=== PATIENT | male | born 1945 | race Caucasian/White ===

== ENCOUNTER → 2019-01-12 | Outpatient (CLI) | payer MEDICARE, BC, SELFPAY | PROVIDERS: PCP Family Medicine; Visit Provider Family Medicine | DX: E78.2 Mixed hyperlipidemia (principal); I10 Essential (primary) hypertension; Z12.5 Encounter for screening for malignant neoplasm of prostate; R79.89 Other specified abnormal findings of blood chemistry | CPT/HCPCS: 85025; 84443; 84153; 36415; 84439; 80061; 80048; 80076; G0103 ==

== ENCOUNTER 2019-12-28 07:57 | Outpatient (CLI) | payer MEDICARE, BC, SELFPAY ==
[2019-12-28 08:25] LABS: Hematocrit 36.7 % (42.0-52.0); Hemoglobin 12.1 g/dL (14.0-18.0); Mean Corpuscular Hemoglobin 30.1 pg (26-34); Mean Corpuscular Volume 91.3 fl (80-100); Mean Platelet Volume 9.8 fl (7.4-10.4); Platelet Count Result 181 k/mm3 (150-375); Red Blood Count 4.02 M/mm3 (4.6-6.20); Red Cell Distribution Width 13.7 % (11.5-14.5); White Blood Count 7.1 K/mm3 (4.5-10.0)
[2019-12-28 08:39] LABS: Alanine Aminotransferase 9 U/L (4-50); Alkaline Phosphatase 57 U/L (38-126); Anion Gap 3 mmol/L (8-16); Aspartate Amino Transferase 26 U/L (17-59); Bilirubin,Total 0.6 mg/dL (0.2-1.3); Blood Urea Nitrogen 26 mg/dL (9-20); Calcium 9.2 mg/dL (8.4-10.2); Carbon Dioxide 30 mmol/L (22-30); Chloride 104 mmol/L (98-107); Cholesterol 116 mg/dL (0-200); Estimated Glomerular Filt Rate > 60; Glucose 118 mg/dL (75-110); HDL Direct 28 mg/dL; Potassium 4.8 mmol/L (3.4-5.0); Sodium 137 mmol/L (137-145); Triglycerides 77 mg/dL (<150)
[2019-12-28 08:49] LABS: LDL Cholesterol Direct 67 mg/dL
== END 2019-12-28 07:58 | disposition home or self-care (01) ==
PROVIDERS: PCP Family Medicine
DX: I25.10 Atherosclerotic heart disease of native coronary artery without angina pectoris (principal); I10 Essential (primary) hypertension; E78.2 Mixed hyperlipidemia
CPT/HCPCS: 36415; 80053; 80061; 85027

== ENCOUNTER 2020-02-06 06:45 | Outpatient (CLI) | payer MEDICARE, BC, SELFPAY ==
[2020-02-06 07:55] LABS: Hemoglobin A1C 6.2 % (<5.7)
[2020-02-06 08:11] LABS: Creatinine Urine 81.1 mg/dL
[2020-02-06 08:16] LABS: Microalbumin Urine Random 16.2 mg/L (0-16.7)
[2020-02-06 08:29] LABS: Prostate Specific Antigen 0.2 ng/mL (< OR = 4.0)
== END 2020-02-06 06:46 | disposition home or self-care (01) ==
PROVIDERS: PCP Family Medicine; Visit Provider Family Medicine
DX: E11.9 Type 2 diabetes mellitus without complications (principal); Z12.5 Encounter for screening for malignant neoplasm of prostate
CPT/HCPCS: 36415; 82043; 83036; 84153; G0103

== ENCOUNTER → 2020-02-25 18:20 | Outpatient (CLI) | payer MEDICARE, BC, SELFPAY ==
--- NOTE | ~2020-02-25 | XR_ITS ---
EXAMINATION: XR chest 2V DATE: 02/25/2020 18:55 INDICATION: Cough TECHNIQUE: frontal and lateral views of the chest were obtained. COMPARISON: None FINDINGS: Mild scattered linear opacities in the left mid and lower and right lower lung zones consistent with discoid atelectasis. No other airspace opacities, pulmonary edema, pleural effusion or pneumothorax. The cardiomediastinal silhouette is normal. Median sternotomy wires and mediastinal surgical clips ar e seen, likely from prior coronary artery bypass grafting. Moderate thoracolumbar spondylosis. There are bridging osteophytes at multiple levels in the spine, consistent with diffuse idiopathic skeletal hyperostosis (DISH). IMPRESSION: 1. Mild scattered linear opacities, most likely atelectasis/scarring in the left mid to lower and rig ht lower lung zones. Reviewed, dictated and finalized at [facility]. STAINER IMPRESSION: 1. Mild scattered linear opacities, most likely atelectasis/scarring in the lef t mid to lower and right lower lung zones.
== END ==
PROVIDERS: PCP Family Medicine; Visit Provider Family Medicine
DX: R05 Cough (principal); R92.8 Other abnormal and inconclusive findings on diagnostic imaging of breast; M47.815 Spondylosis without myelopathy or radiculopathy, thoracolumbar region; M48.10 Ankylosing hyperostosis [Forestier], site unspecified
CPT/HCPCS: 71046

== ENCOUNTER 2020-10-27 13:35 | Outpatient (CLI) | payer MEDICARE, BC, SELFPAY ==
[2020-10-27 17:13] LABS: Vitamin D 25 Hydroxy 27.8 ng/mL
== END 2020-10-27 13:36 | disposition home or self-care (01) ==
PROVIDERS: PCP Family Medicine
DX: E55.9 Vitamin D deficiency, unspecified (principal)
CPT/HCPCS: 36415; 82306

== ENCOUNTER 2021-02-25 08:03 | Outpatient (CLI) | payer MEDICARE, BC, SELFPAY ==
[2021-02-25 08:29] LABS: Hematocrit 38.5 % (42.0-52.0); Mean Corpuscular HGB Conc 33.8 g/dl (32-36); Mean Corpuscular Volume 91.9 fl (80-100); Mean Platelet Volume 9.9 fl (7.4-10.4); Platelet Count Result 205 k/mm3 (150-375); Red Blood Count 4.19 M/mm3 (4.6-6.20); Red Cell Distribution Width 13.5 % (11.5-14.5); White Blood Count 7.3 K/mm3 (4.5-10.0)
[2021-02-25 08:45] LABS: Alanine Aminotransferase 13 U/L (4-50); Albumin Level 4.3 g/dL (3.5-5.1); Alkaline Phosphatase 63 U/L (38-126); Anion Gap 7 mmol/L (8-16); Aspartate Amino Transferase 30 U/L (17-59); Bilirubin,Total 0.6 mg/dL (0.2-1.3); Blood Urea Nitrogen 27 mg/dL (9-20); Calcium 9.4 mg/dL (8.4-10.2); Carbon Dioxide 31 mmol/L (22-30); Chloride 99 mmol/L (98-107); Cholesterol 121 mg/dL (0-200); Estimated Glomerular Filt Rate > 60; Glucose 123 mg/dL (65-110); HDL Direct 31 mg/dL; Potassium 4.6 mmol/L (3.4-5.0); Sodium 137 mmol/L (137-145); Triglycerides 78 mg/dL (<150)
[2021-02-25 08:58] LABS: LDL Cholesterol Direct 68 mg/dL
[2021-02-25 09:17] LABS: Creatinine Urine 77.7 mg/dL
[2021-02-25 09:18] LABS: Prostate Specific Antigen 0.3 ng/mL (< OR = 4.0)
[2021-02-25 09:19] LABS: MALB Creatinine Ratio 15.4 mg/g (0-30)
[2021-02-25 09:23] LABS: Hemoglobin A1C 6.5 % (<5.7)
[2021-02-25 09:31] LABS: Vitamin D 25 Hydroxy 54.7 ng/mL
== END 2021-02-25 08:04 | disposition home or self-care (01) ==
PROVIDERS: PCP Family Medicine; Visit Provider Family Medicine
DX: N28.9 Disorder of kidney and ureter, unspecified (principal); I10 Essential (primary) hypertension; E11.9 Type 2 diabetes mellitus without complications; E78.2 Mixed hyperlipidemia; Z13.220 Encounter for screening for lipoid disorders; Z12.5 Encounter for screening for malignant neoplasm of prostate; E55.9 Vitamin D deficiency, unspecified
CPT/HCPCS: 36415; 80048; 80061; 80076; 82043; 82306; 83036; 84153; 84443; 85027; G0103

== ENCOUNTER 2021-07-15 14:40 | Outpatient (CLI) | payer MEDICARE, BC, SELFPAY ==
[2021-07-15 15:36] LABS: Basophils Absolute Auto 0.1 K/mm3 (0.0-0.1); Basophils Percent Auto 1.5 % (0.2-1.2); Eosinophils Absolute Auto 0.4 K/mm3 (0-0.3); Eosinophils Percent Auto 4.9 % (0-4.4); Hematocrit 38.1 % (42.0-52.0); Hemoglobin 12.5 g/dL (14.0-18.0); Immature Granulocyte Absolute 0.02 K/mm3 (0.00-0.031); Immature Granulocyte Percent A 0.2 % (0-0.5); Lymphocytes Absolute Auto 1.78 K/mm3 (0.9-3.2); Lymphocytes Percent Auto 20.7 % (18.3-44.2); Mean Corpuscular HGB Conc 32.8 g/dl (32-36); Mean Corpuscular Hemoglobin 30.6 pg (26-34); Mean Corpuscular Volume 93.2 fl (80-100); Mean Platelet Volume 10.4 fl (7.4-10.4); Monocytes Percent Auto 11.8 % (2.6-8.5); Neutrophils Absolute Auto 5.2 K/mm3 (1.3-6.7); Neutrophils Percent Auto 60.9 % (45.5-73.1); Platelet Count Result 232 k/mm3 (150-375); Red Blood Count 4.09 M/mm3 (4.6-6.20); White Blood Count 8.6 K/mm3 (4.5-10.0)
== END 2021-07-15 14:41 | disposition home or self-care (01) ==
LOC: ANHLAB 14:42
PROVIDERS: PCP Family Medicine; Visit Provider Podiatrist Foot & Ankle Surgery
DX: M10.072 Idiopathic gout, left ankle and foot (principal)
CPT/HCPCS: 36415; 84550; 85025

== ENCOUNTER 2021-10-07 12:51 | Outpatient (CLI) | payer MEDICARE, BC, SELFPAY ==
[2021-10-07 15:33] LABS: Vitamin D 25 Hydroxy 66.9 ng/mL
== END 2021-10-07 12:52 | disposition home or self-care (01) ==
PROVIDERS: PCP Family Medicine
DX: E55.9 Vitamin D deficiency, unspecified (principal)
CPT/HCPCS: 36415; 82306

== ENCOUNTER 2022-06-29 07:56 | Outpatient (CLI) | payer MEDICARE, BC, SELFPAY ==
[2022-06-29 08:56] LABS: Alanine Aminotransferase 17 U/L (6-50); Albumin Level 4.4 g/dL (3.5-5.1); Alkaline Phosphatase 56 U/L (38-126); Aspartate Amino Transferase 29 U/L (17-59); Bilirubin,Total 0.7 mg/dL (0.2-1.3); Cholesterol 126 mg/dL (0-200); HDL Direct 30 mg/dL; Triglycerides 105 mg/dL (<150)
[2022-06-29 09:07] LABS: LDL Cholesterol Direct 70 mg/dL
[2022-06-29 09:20] LABS: Creatinine Urine 83.9 mg/dL
[2022-06-29 09:23] LABS: MALB Creatinine Ratio 52.7 mg/g (0-30); Microalbumin Urine Random 44.2 mg/L (0-16.7)
[2022-06-29 09:25] LABS: Prostate Specific Antigen 0.3 ng/mL (< OR = 4.0)
== END 2022-06-29 07:57 | disposition home or self-care (01) ==
PROVIDERS: PCP Family Medicine; Visit Provider Family Medicine
DX: E78.2 Mixed hyperlipidemia (principal); E11.9 Type 2 diabetes mellitus without complications; Z12.5 Encounter for screening for malignant neoplasm of prostate; Z13.220 Encounter for screening for lipoid disorders; I25.10 Atherosclerotic heart disease of native coronary artery without angina pectoris
CPT/HCPCS: 36415; 80061; 80076; 82043; 84153; G0103

== ENCOUNTER 2022-08-10 12:08 | Outpatient (CLI) | payer MEDICARE, BC, SELFPAY ==
--- NOTE | ~2022-08-10 | XR_ITS ---
EXAM: XR lumbar spine 6V w bending DATE: 08/10/2022 12:36 HISTORY: S39.92XA - Unspecified injury of lower back, initial enco... . COMPARISON: X-ray chest 02/25/2020. FINDINGS: 5 nonrib-bearing lumbar-type vertebral bodies. Pedicles intact. Stable mild anterior wedge deformity at T12-L1. Multilevel disc space narrowing and marginal osteophytosis including large brid ging osteophytes at multiple levels. Severe disc space narrowing with vacuum phenomenon at L5-S1. 4 m m retrolistheses at L1-2 and L2-3 that are stable in extension and reduce in flexion. Stable 3 mm ret rolisthesis at L3-4. Stable 2 mm anterolisthesis at L5-S1. No pars defect. Multilevel moderate facet sclerosis and hypertrophy, most progressive at L5-S1. Aortic calcification without evident aneurysm. IMPRESSION: No acute fracture detected in the lumbar spine. Dynamic grade 1 retrolistheses at L1-2 an d L2-3. Stable grade 1 retrolisthesis at L3-4. Stable grade 1 anterolisthesis at L5-S1. Multilevel de generative disc disease and facet arthropathy, most pronounced at L5-S1. Reviewed, dictated and finalized at location [facility]. IMPRESSION: No acute fracture detected in the lumbar spine. Dynamic grade 1 ret rolistheses at L1-2 and L2-3. Stable grade 1 retrolisthesis at L3-4. Stable gra de 1 anterolisthesis at L5-S1. Multilevel degenerative disc disease and facet a rthropathy, most pronounced at L5-S1.
== END 2022-08-10 12:09 | disposition home or self-care (01) ==
PROVIDERS: PCP Family Medicine; Visit Provider Nurse Practitioner Family
DX: S39.92XA Unspecified injury of lower back, initial encounter (principal); X58.XXXA Exposure to other specified factors, initial encounter; M51.37 Other intervertebral disc degeneration, lumbosacral region
CPT/HCPCS: 72114

== ENCOUNTER 2023-08-24 07:39 | Outpatient (CLI) | payer MEDICARE, BC, SELFPAY ==
[2023-08-24 08:22] LABS: Hematocrit 41.9 % (42.0-52.0); Hemoglobin 13.5 g/dL (14.0-18.0); Mean Corpuscular HGB Conc 32.2 g/dl (32-36); Mean Corpuscular Hemoglobin 29.5 pg (26-34); Mean Corpuscular Volume 91.5 fl (80-100); Mean Platelet Volume 10.5 fl (7.4-10.4); Platelet Count Result 206 k/mm3 (150-375); Red Blood Count 4.58 M/mm3 (4.6-6.20); Red Cell Distribution Width 14.8 % (11.5-14.5)
[2023-08-24 08:35] LABS: Alanine Aminotransferase 12 U/L (6-50); Albumin Level 4.7 g/dL (3.5-5.1); Alkaline Phosphatase 57 U/L (38-126); Anion Gap 8 mmol/L (4-12); Aspartate Amino Transferase 28 U/L (17-59); Bilirubin,Total 0.9 mg/dL (0.2-1.3); Blood Urea Nitrogen 37 mg/dL (9-20); Calcium 9.4 mg/dL (8.4-10.2); Carbon Dioxide 27 mmol/L (22-30); Chloride 104 mmol/L (98-107); Cholesterol 126 mg/dL (0-200); Estimated Glomerular Filt Rate > 60; Glucose 125 mg/dL (65-110); HDL Direct 33 mg/dL; Potassium 4.9 mmol/L (3.4-5.0); Sodium 139 mmol/L (137-145); Triglycerides 130 mg/dL (<150)
[2023-08-24 08:44] LABS: LDL Cholesterol Direct 72 mg/dL
[2023-08-24 08:48] LABS: Creatinine Urine 99.4 mg/dL
[2023-08-24 08:52] LABS: MALB Creatinine Ratio 34.8 mg/g (0-30); Microalbumin Urine Random 34.6 mg/L (0-16.7)
[2023-08-24 09:04] LABS: Prostate Specific Antigen 0.6 ng/mL (< OR = 4.0)
== END 2023-08-24 07:40 | disposition home or self-care (01) ==
PROVIDERS: PCP Family Medicine; Visit Provider Family Medicine
DX: N28.9 Disorder of kidney and ureter, unspecified (principal); Z12.5 Encounter for screening for malignant neoplasm of prostate; E78.2 Mixed hyperlipidemia; Z13.220 Encounter for screening for lipoid disorders; E11.9 Type 2 diabetes mellitus without complications; I10 Essential (primary) hypertension
CPT/HCPCS: 36415; 80048; 80061; 80076; 82043; 84153; 84443; 85027; G0103

== ENCOUNTER 2024-09-05 08:27 | Outpatient (CLI) | payer MEDICARE, BC, SELFPAY ==
--- OUTSIDE RECORDS SUMMARY | 2024-09-05 08:31 | XMS_ITS | Continuity of Care Document ---
Author Name [facility] Organization [facility] Care Team Providers Care Assignment Manager Name Role Phone [facility] Unavailable Unavailable Encounters Combined list of: 1) Encounters from [facility] of Veterans Affairs facilities going backup to the last 18 months, not all VA inpatient encounters are included; 2) Encounters from the Department of Defense facilities going backup to 280 months. Location Location Details Encounter Type Encounter Number Reason For Visit Attending Provider ADM Date DC Date Status Disposition Source [facility] Outpatient Encounter [id number] 04/21 [facility]
--- OUTSIDE RECORDS SUMMARY | 2024-09-05 08:31 | XMS_ITS | Clinical Summary ---
Author Organization [facility] Address [address] [place] [address] Care Team Providers Care Sales Enablement Manager Name Role Phone Andres Thompson MD Primary Care Provider [phone] Allergies Active Allergy Reactions Criticality Noted Date Comments Hydrocodone-Acetaminophen Nausea and Vomiting Medium 0 12/12/2013 Severe nausea Medications metFORMIN (GLUCOPHAGE) 500 mg tablet Take 500 mg by mouth late in the day . Active Accu-Chek Fastclix Lancet Drum U QID 0 Active Accu-Chek Guide Glucose Meter U UTD FOR DIABETES 0 Active Accu-Chek Guide test strips Strip TEST BLOOD SUGAR QID 0 Active cholecalciferol, vitamin D3, 5,000 unit Take 400 Units by mouth daily. Active OTC INGREDIENT Eye promise, take 1 gel bid Active aspirin (ECOTRIN EC) 81 mg Tablet, Delayed Release (E.C.) Take 1 Tablet (81 mg) by mouth daily. 90 Tablet 4 4 Active atorvastatin (LIPITOR) 80 mg tabletIndications:M ixed hyperlipidemia TAKE 1 TABLET BY MOUTH DAILY 90 Tablet 3 5 Active sacubitriL-valsarta n (ENTRESTO) 49-51 mg Tablet Take 1 Tablet by mouth 2 times daily. 200 Tablet 3 5 Active Active Problems Patient Care Coordination No te Formatting of this note migh t be different from the original. Loom Repairer- Dr. Annmarie Meyer ROLL INSPECTOR KAR BLACK MD. ([place]) Problem Noted Date Diagnosed Date Aortic stenosis 06/20/2024 Overview (06/20/2024): Mild-mod echo 02/25 Post-op pain 02/14/2024 Bilateral carotid artery stenosis 02/13/2024 Overview (06/20/2024): S/P R CEA 02/25 Sinus node dysfunction 08/12/2017 Overview (06/20/2024): Carvedilol reduced bc bradycardia holter 04/24 Carvedilol stopped bc bradycardia 10/24 Had marked bradycardia following CEA, seen by EP, PM felt not warranted 02/25 Ventricular ectopy 01/12/2017 Overview (10/05/2022): Approx 5% of all HBs holter 04/21 <<< 1% of all HBs holters 04/24, 09/24 CAD 12/01/2016 Overview (06/20/2024): Asymptomatic, detected bc irregular pulse, led to ECG which was abnormal, warrants surveillance stress testing S/P CABG 12/19 Inferolat, apical infarct, no ischemia, LVEF 52% stress 05/28 LVEF 40% echo 02/25 Carvedilol stopped bc bradycardia Has never had CHF Hyperlipidemia 12/01/2016 Type 2 diabetes mellitus 12/01/2016 HTN (hypertension) 12/01/2016 Type 2 diabetes mellitus 12/01/2016 Resolved Problems Problem Noted Date Diagnosed Date Resolved Date Chronic systolic congestive heart failure 02/14/2024 06/20/2024 First degree AV block 02/13/20242024 Sinus bradycardia 02/13/2024 06/20/2024 Cardiomyopathy 04/18/2017 03/21/2019 LBBB (left bundle branch block) 02/28/2017 02/28/2017 HTN (hypertension) 12/01/2016 5 Encounters Date Type Department Care Team Description 08/16/2024 2:15 PM CDT Office Visit [facility] Mechanical Meter Tester [address] [place] [address] Tye Singh MD Bilateral carotid artery stenosis (Primary Dx) 08/16/2024 12:55 PM CDT - 08/16/2024 11:59 PM CDT Hospital Encounter [facility] Supp Svcs Blood Flow [address] [place] [address] Tye Singh MD Discharge Disposition: Home or Self Care 08/14/2024 External Device Data STL ABSTRACTION Provider, Abstract 07/03/2024 External Device Data STL ABSTRACTION Provider, Abstract 06/26/2024 External Device Data STL ABSTRACTION Provider, Abstract 06/20/2024 8:45 AM CDT Office Visit [facility] [address] [place] [address] Kar Black MD CAD s/p CABG (Primary Dx); Aortic stenosis; Sinus node dysfunction; Hypertension; Hyperlipidemia 06/09/2024 External Device Data STL ABSTRACTION Provider, Abstract 06/08/2024 External Device Data STL ABSTRACTION Provider, Abstract from Last 3 Months Immunizations Immunization Administration Dates Next Due Influenza Seasonal Unspecified Formulation IM Family History Medical History Relation Name Comments Heart Attack Brother No Known Problems Sister Relation Name Status Comments Brother (Age 63) Heart Niko ck Father (Age 63) Lung Cance r Maternal Grandfather (Age 49) Co nsumption Maternal Grandmother (Age 86) DM /Stroke Mother (Age 86) Dementia Paternal Grandfather (Age 66) Gutierrez rdening of the Arteries Sister Alive Social History Tobacco Use Types Packs/Day Years Used Date Smoking Tobacco: Former Cigarettes Q uit: 1977 Smokeless Tobacco: Never Tobacco Cessation:Counseling Given: Not Answered Alcohol Use Standard Drinks/Week Comments Not Currently 0 (1 standard drink = 0.6 oz pur e alcohol) rarely Food Insecurity Answer Date Recorded Patient needs follow up regardin 07/26/2024 Transportation Needs Answer Date Record ed Patient needs follow up regardin 07/26/2024 Housing Stability Answer Date Recorded Social/Environmental Concerns No concerns Utility Needs Answer Date Recorded Patient needs follow up regardin 07/26/2024 Sex and Gender Information Value Date Recorded Sex Assigned at Not on file Legal Sex Male 2:46 PM CDT Gender Identity Not on file Sexual Orientation Not on file Last Filed Vital Signs Vital Sign Reading Time Taken Comments Blood Pressure 132/74 08/16/2024 1:51 PM CDT Pulse 53 06/20/2024 8:12 AM CDT Temperature 36.9 C (98.5 F) 02/14/2024 1:00 PM CHEESE PACKER Respiratory Rate 19 02/14/2024 3:00 PM CHEESE PACKER Oxygen Saturation 98% 06/20/2024 8:12 AM CDT Inhaled Oxygen Concentration - - Weight 84.8 kg (187 lb) 06/20/2024 8:12 AM CDT Height 175.3 cm (5' 9) 06/20/2024 8:12 AM CDT Body Mass Index 27.62 06/20/2024 8:12 AM CDT Plan of Treatment Upcoming Encounters Date Type Department Care Team (Late st Contact Info) Description 12/26/2024 10:45 AM CDT Office Visit [facility] [address] [address] [place] [address] Kar Black MD [address] [facility] [address] [place], [place] [id number] 02/14/2025 11:00 AM CHEESE PACKER Appointment [facility] Supp Svcs Blood Flow [address] [place] [address] Tye Singh MD NO ADDRESS ON FILE 02/14/2025 11:45 AM CHEESE PACKER Office Visit [facility] [place] [address] [address] Candido Momin MD [facility] [address] [address] Health Maintenance Due Date Last Done Comments DIABETES ANNUAL FOOT EXAM 12/14/1963 DIABETES MICROALBUMIN ANNUAL SCREEN 12/14/1963 DTAP/TDAP/TD VACCINES (1 - Tdap) 1964 PNEUMOCOCCAL VACCINE 50+ YEA RS (1 of 2 - PCV) 1964 ZOSTER VACCINE (1 of 2) 12/14/1995 LDL CHOLESTEROL ANNUAL 11/26/2017 11/26/2016 RSV VACCINE (60+ or ) (1 - 1-dose 75+ series) 2020 DIABETES ANNUAL RETINAL EXAM 08/24/2023, 07/30/2021, 07/01/2020, Additional history exists INFLUENZA VACCINE (#1) 2023 12/28/2017 DIABETES HBA1C Q 6 MONTHS 08/06/20242023, 07/26/2023, 09/28/2022, Additional history exists COLORECTAL SCREENING Discontinued 11/11/2017 Colorectal Cancer Screening Discontinued FIT-DNA Q 3 years Discontinued FIT/FOBT Q 1 year Discontinued Flex Sig/CT Colonography Q 5 years Discontinued Medical Devices Implanted Type Area Hostess Party Sales Representative Device Identifier Shelf Expiration Date Model / Serial / Lot Clip Ligating Horizon Med Ti [id number] - Csc - [id number] Implanted:Qty : 2 on 02/13/2024 by Tye Singh MD at [facility] Clip Right: Neck TELEFLEX- WECK CLOSURE SYS 11/06/2028 [id number] / / [id number] Clip Ligating Horizon Sm Ti [id number] - Csc - [id number] Implanted:Qty : 2 on 02/13/2024 by Tye Singh MD at [facility] Clip Right: Neck [employer]LE[employer] INC 10/02/2028 [id number] / / [id number] Patch Vascu-Guard 0.8x8cm Cardio Vg-0108 - [id number] Implanted:Qty : 1 on 02/13/2024 by Tye Singh MD at [facility] Collagen Right: Carotid [employer] [id number] 07/11/2025 [id number] / / [id number] Hemostatic Surgicel 4x8in 1951 - [id number] Implanted:Qty : 1 on 12/08/2016 by Clay Pabon MD at [facility] Hemostatic N/A: Chest [employer] 01/01/20211951 / / [id number] Hemostatic Surgiflo 8ml W/ Thrombin 2994 - [id number] Implanted:Qty : 1 on 02/13/2024 by Tye Singh MD at [facility] Hemostatic Right: Neck [employer] [id number] 10/01/2024 2994 / / [id number] Dental Implants Procedures Procedure Name Priority Date/Time Associated Diagnosis Comments US CAROTID DOPPLER Routine 08/16/2024 2: 24 PM CDT Bilateral carotid artery stenosis HEMOGLOBIN A1C Routine 02/07/2024 2:15 PM CHEESE PACKER LIPID PANEL Routine 11/26/2016 from Last 3 Months or Most Recently Relevant to Health Maintenance Results * US CAROTID DOPPLER (08/16/2024 2:24 PM CDT) Anatomical Region Laterality Modality Neck Ultrasound 08/16/2024 1:11 PM CDT Narrative 08/17/2024 7:02 AM CDT [address] [address] [email or web address] [email or web address] Exam Carotid Duplex Patient: Gio Grnat Study ID: [id number] Gender: M : 1945 Age: 78 Race: CAU Height 175.3cm Study Date: 08/16/2024 Weight: 84.8kg Access. #: [id number] *Referring Physician:* Tye Singh Gregory *Ordering Physician:* Tye Singh *Casing Runner:* Elizabeth Oropeza History: Known carotid disease. PMH: Prior study from 05/16/24 is available for comparison. Risk factors: Former tobacco use; date of cessation unknown. Hypertension. Diabetes mellitus. Hyperlipidemia. Coronary artery disease. Study data: New node Study status: Routine. Procedure: A vascular evaluation was performed. Image quality was good. Carotid duplex study was performed using real-time imaging coupled with Doppler flow analysis. Carotid duplex study. Complete study and Doppler flow study including spectral analysis, color and roth scale imaging. Birthdate: Patient birthdate: 1945. Age: Patient is 78year(s) old. Sex: gender: male. Height: 175.3cm. 69in. Weight: 84.8kg. : 187lb. Body mass index: BMI: 27.6kg/m^2. Body surface area: BSA: 2.05m^2. Study date: Study date: 08/16/2024. Study time: 01:11 PM. Location: Vascular laboratory. Patient status: Outpatient. Impressions - Study data: Prior study from 05/16/24 is available for comparison. - Right internal carotid: There is heterogeneous plaque. Stenosis: There is a 0-49% stenosis. - Left internal carotid: There is irregular calcific plaque. Stenosis: There is a 50-69% stenosis. The bilateral vertebral arteries are patent with normal antegrade flow. Aorta and systemic arteries: Right internal carotid: There is heterogeneous plaque. Stenosis: There is a 0-49% stenosis. Left internal carotid: There is irregular calcific plaque. Stenosis: There is a 50-69% stenosis. Tables: Arterial flow: + +-----+----+ !Location !V sys!V ed! + +-----+----+ !Right CCA - proximal!185 !20.3! + +-----+----+ !Right CCA - distal !93 !25.2! + +-----+----+ !Right ICA - proximal!110 !24.1! + +-----+----+ !Right ICA - mid !95.9 !28.1! + +-----+----+ !Right ICA - distal !110 !45.5! + +-----+----+ !Right ECA !-184 !26.3! + +-----+----+ !Right vertebral !49.7 !18 ! + +-----+----+ !Left CCA - proximal !101 !24.2! + +-----+----+ !Left CCA - distal !84.5 !26.1! + +-----+----+ !Left ICA - proximal !338 !79 ! + +-----+----+ !Left ICA - distal !180 !47.3! + +-----+----+ !Left ECA !147 !16.5! + +-----+----+ !Left vertebral !66.3 !24.3! + +-----+----+ *Velocities are expressed in cm/s, Diameters are expressed in cm Prepared and Electronically Authenticated Enoc Padilla [id number]:01:57 Procedure Note Enoc Padilla MD - 08/17/[address] [place] [address] [email or web address] [email or web address] Exam Carotid Duplex Patient: Gio Grant Study ID: [id number] Gender: M : 1945 Age: 78 Race: MARY JO Height 175.3cm Study Date: 08/16/2024 Weight: 84.8kg Access. #: [id number] *Referring Physician:Tye Rae Gregory *Ordering Physician:* Tye Singh *Casing Runner:Elizabeth Aggarwal History: Known carotid disease. PMH: Prior study from 05/16/24 isavailable for comparison. Risk factors: Former tobacco use; date of cessationunknown. Hypertension. Diabetes mellitus. Hyperlipidemia. Coronary arterydisease. Study data: [facility] Study status: Routine. Procedure: A vascular evaluation was performed. Image quality was good. Carotid duplex studywas performed using real-time imaging coupled with Doppler flow analysis. Carotid duplex study. Complete study and Doppler flow studyincluding spectral analysis, color and roth scale imaging. Birthdate: Patient birthdate: 1945. Age: Patient is 78year(s) old. Sex: Birthgender: male. Height: 175.3cm. 69in. Weight: 84.8kg. : 187lb. Body massindex: BMI: 27.6kg/m^2. Body surface area: BSA: 2.05m^2. Study date:Study date: 08/16/2024. Study time: 01:11 PM. Location: Vascular laboratory. Patient status: Outpatient. Impressions - Study data: Prior study from 05/16/24 is available for comparison. - Right internal carotid: There is heterogeneous plaque. Stenosis: Thereis a 0-49% stenosis. - Left internal carotid: There is irregular calcific plaque. Stenosis:There is a 50-69% stenosis. The bilateral vertebral arteries are patent with normal antegrade flow. Aorta and systemic arteries: Right internal carotid: There is heterogeneous plaque. Stenosis: There wilfredo 0-49% stenosis. Left internal carotid: There is irregular calcific plaque. Stenosis: Thereis a 50-69% stenosis. Tables: Arterial flow: + +-----+----+ !Location !V sys!V ed! + +-----+----+ !Right CCA - proximal!185 !20.3! + +-----+----+ !Right CCA - distal !93 !25.2! + +-----+----+ !Right ICA - proximal!110 !24.1! + +-----+----+ !Right ICA - mid !95.9 !28.1! + +-----+----+ !Right ICA - distal !110 !45.5! + +-----+----+ !Right ECA !-184 !26.3! + +-----+----+ !Right vertebral !49.7 !18 ! + +-----+----+ !Left CCA - proximal !101 !24.2! + +-----+----+ !Left CCA - distal !84.5 !26.1! + +-----+----+ !Left ICA - proximal !338 !79 ! + +-----+----+ !Left ICA - distal !180 !47.3! + +-----+----+ !Left ECA !147 !16.5! + +-----+----+ !Left vertebral !66.3 !24.3! + +-----+----+ *Velocities are expressed in cm/s, Diameters are expressed in cm Prepared and Electronically Authenticated Enoc Padilla [id number]:01:57 Tye Singh MD ORDERABLES Final Result * (ABNORMAL) HEMOGLOBIN A1C (02/07/2024 2:15 PM CHEESE PACKER) HEMOGLOBIN A1C 7.3(H) <5.7 % 02/07/2024 3:09 PM CHEESE PACKER [facility] [employer] [facility] EST. AVG GLUCOSE, A1C 163 mg/dL 02/07/2024 3:09 PM [facility] [employer] [facility] Blood Venipuncture / Unknown 02/07/2024 2:15 PM CHEESE PACKER 02/07/2024 2:47 PM CHEESE PACKER Narrative [facility] [employer] [facility] - 02/07/2024 3:09 PM CHEESE PACKER HGB A1C INTERPRETATION NORMAL: <5.7% PRE-DIABETES: 5.7 - 6.4% DIABETES: 6.5% OR GREATER Latonya Acosta [facility] CHEMISTRY ORDERABLES Vaishnavi l Result [facility] [employer] [facility] CLIA# [id number] [address] [place] [address] * (ABNORMAL) LIPID PANEL (11/26/2016) Blood Johana Ramírez PA-C CHEMISTRY ORDERABLES Dustin estrella Result - Final [facility]ASC[facility] CLIA# [id number] [address] [place] [address], [facility] [address] [place] [address] from Last 3 Months or Most Recently Relevant to Health Maintenance Insurance MEDICARE PART A AND B [facility] Advance Directives For more information, please contact: [phone] * Full Code (Latest Code Status on File) Date Activated Date Inactivated Comments 02/13/2024 6:07 PM 02/14/2024 7:19 PM * Full Code Date Activated Date Inactivated Comments 02/13/2024 5:45 PM 02/13/2024 6:07 PM * Full Code Date Activated Date Inactivated Comments 12/08/2016 5:14 PM 2016 2:13 PM * Full Code Date Activated Date Inactivated Comments 12/08/2016 10:22 AM 12/08/2016 5:13 PM * Full Code Date Activated Date Inactivated Comments 12/03/2016 6:37 AM 12/03/2016 6:11 PM Care Teams Sales Enablement Manager Relationship Specialty Start Date End Date Andres Thompson MD [address] [place] [address] PCP - General Family Practice 12/01/16
--- OUTSIDE RECORDS SUMMARY | 2024-09-05 08:31 | XMS_ITS | Continuity of Care Document ---
Author Organization [facility] Address [address] [place] [address] [address] [place] [address] Phone Care Team Providers Care Machine Feeder Name Role Phone Arthur Deal Unavailable Unavailable Advance Directives Directive Yes / No Effective Date File Name No Information Encounters Encounter Description Practice Location Reason(s) For Visit Diagnoses Date Provider Providers Copied on Encounter Located within [facility], [address] [place] [address] [address], [place], [place], [id number], [place] tel:[phone] [facility] No Information [address] , [address], [place], [address], [place]. tel:[phone] Family History Family Member Type Diagnosis Age At Onset No Information Payers Payer name Insurance type Covered green party ID Authoriza tion(s) [facility] [id number] Social History Type Description Quantity Date Captured Comments Sex Male Smoking Status No Information Chief Complaint And Reason For Visit No Information Reason For Referral Reason For Referral No Information History Of Present Illness Encounter Date Complaint History Of Prese nt Illness No Information Functional Status Date Functional Assessmen t No Information Instructions Date Instruction Additional Infor mation No Information Assessments Type Assessment Date No Information Patient Care Teams Name Effective Dates (start - stop) Status Members No Information
[2024-09-05 20:28] LABS: Creatinine Urine 124.9 mg/dL
[2024-09-05 20:34] LABS: Microalbumin Urine Random 48.7 mg/L (0-16.7)
[2024-09-05 21:17] LABS: Alanine Aminotransferase 12 U/L (6-50); Albumin Level 4.3 g/dL (3.5-5.1); Alkaline Phosphatase 63 U/L (38-126); Anion Gap 9 mmol/L (4-12); Aspartate Amino Transferase 39 U/L (17-59); Bilirubin Direct 0.2 mg/dL (0-0.3); Bilirubin,Total 0.7 mg/dL (0.2-1.3); Blood Urea Nitrogen 35 mg/dL (9-20); Calcium 9.6 mg/dL (8.4-10.2); Carbon Dioxide 25 mmol/L (22-30); Chloride 105 mmol/L (98-107); Estimated Glomerular Filt Rate > 60; Glucose 112 mg/dL (65-110); Sodium 139 mmol/L (137-145); Total Protein 7.7 g/dL (6.3-8.2)
[2024-09-05 21:46] LABS: Prostate Specific Antigen 0.5 ng/mL (< OR = 4.0)
== END 2024-09-05 08:28 | disposition home or self-care (01) ==
PROVIDERS: PCP Family Medicine; Visit Provider Family Medicine
DX: E11.29 Type 2 diabetes mellitus with other diabetic kidney complication (principal); R80.9 Proteinuria, unspecified; Z12.5 Encounter for screening for malignant neoplasm of prostate
CPT/HCPCS: 36415; 80048; 80076; 82043; 84153; G0103

== ENCOUNTER 2024-09-14 07:54 | Outpatient (CLI) | payer MEDICARE, BC, SELFPAY ==
--- OUTSIDE RECORDS SUMMARY | 2024-09-14 08:01 | XMS_ITS | Continuity of Care Document ---
Author Organization [facility] Address [address] [place] [address] [address] [place] [address] Phone Care Team Providers Care Armed Guard Name Role Phone Arthur Deal Unavailable Unavailable Advance Directives Directive Yes / No Effective Date File Name No Information Encounters Encounter Description Practice Location Reason(s) For Visit Diagnoses Date Provider Providers Copied on Encounter [facility], [address] [place] [address] [address], [place], [place], [id number], [place] tel:[phone] [facility] No Information [address] , [address], [place], [address], [place]. tel:[phone] Family History Family Member Type Diagnosis Age At Onset No Information Payers Payer name Insurance type Covered libertarian ID Authoriza tion(s) [facility] [id number] Social History Type Description Quantity Date Captured [...]
--- OUTSIDE RECORDS SUMMARY | 2024-09-14 08:01 | XMS_ITS | Continuity of Care Document ---
Author Name [facility] Organization [facility] Care Team Providers Care Implementation Director Name Role Phone [facility] Unavailable Unavailable Encounters [...] ADM Date DC Date Status Disposition Source [facility] Outpatient Encounter [id number] 4 04/21 [facility]
--- OUTSIDE RECORDS SUMMARY | 2024-09-14 08:01 | XMS_ITS | Clinical Summary ---
Author Organization [facility] Address [address] [place] [address] Care Team Providers Care Car Repairman Name Role Phone Andres Thompson MD Primary Care Provider [phone] Allergies Active Allergy Reactions Criticality Noted Date [...] migh t be different from the original. Rehab Rn- Dr. Annmarie Meyer PIPE FINISHING SUPERVISOR KAR BLACK MD. ([place]) Problem Noted Date Diagnosed Date Aortic stenosis [...] Description 08/16/2024 2:15 PM CDT Office Visit [facility] Cable Respooler [address] [place] [address] Tye Singh MD Bilateral carotid artery stenosis (Primary Dx) 08/16/2024 12:55 PM CDT - 08/16/2024 11:59 PM CDT Hospital Encounter [facility] Supp Svcs Blood Flow [address] [place] [address] Tye Singh MD Discharge Disposition: Home or Self Care 08/14/2024 External Device Data STL ABSTRACTION Provider, Abstract 07/03/2024 External Device Data ST[place] ABSTRACTION Provider, Abstract 06/26/2024 External Device Data ST[place] ABSTRACTION Provider, Abstract 06/20/2024 8:45 AM CDT Office Visit [facility] [address] [place] [address] Kar Black MD CAD s/p CABG (Primary Dx); Aortic stenosis; Sinus node dysfunction; Hypertension; Hyperlipidemia from Last 3 Months Immunizations Immunization Administration [...] 36.9 C (98.5 F) 02/14/2024 1:00 PM GRANULATOR TENDER Respiratory Rate 19 02/14/2024 3:00 PM GRANULATOR TENDER Oxygen Saturation 98% 06/20/2024 8:12 AM CDT Inhaled Oxygen Concentration - - Weight 84.8 kg (187 lb) 06/20/2024 8:12 AM CDT Height 175.3 cm (5' 9) 06/20/2024 8:12 AM CDT Body Mass Index 27.62 06/20/2024 8:12 AM CDT Plan of Treatment Upcoming Encounters Date Type Department Care Team (Late st Contact Info) Description 12/26/2024 10:45 AM CDT Office Visit [facility] [address] [address] [place] [phone] Kar Black MD [address] [facility] [address] [place], [place] [id number] 02/14/2025 11:00 AM GRANULATOR TENDER Appointment [facility] Supp Svcs Blood Flow [address] [place] [address] Tye Singh MD NO ADDRESS ON FILE 02/14/2025 11:45 AM GRANULATOR TENDER [facility] [place] [address] [facility] [address] [place] [address] Candido Momin MD [address] [facility] [address] [place] [address] Health Maintenance Due Date Last Done [...] years Discontinued Medical Devices Implanted Type Area Strategic Advisor Device Identifier Shelf Expiration Date Model / Serial / Lot Clip Ligating Horizon Med Ti [id number] - [facility] - [id number] Implanted:Qty : 2 on 02/13/2024 by Tye Singh MD at [facility] Clip Right: Neck [employer]LE[employer]- WECK [employer]URE SYS 11/06/2028 [id number] / / [id number] Clip Ligating Horizon Sm Ti [id number] - Csc - [id number] Implanted:Qty : 2 on 02/13/2024 by Tye Singh MD at [facility] Clip Right: Neck [employer] 10/02/2028 [id number] / / [id number] Patch Vascu-Guard 0.8x8cm Cardio Vg-0108 - [id number] Implanted:Qty : 1 on 02/13/2024 by Tye Singh MD at [facility] Collagen Right: Carotid [employer] [id number] 07/11/2025 [id number] / / [id number] Hemostatic Surgicel 4x8in 1951 - [id number] Implanted:Qty : 1 on 12/08/2016 by Clay Pabon MD at [facility] Hemostatic N/A: Chest [employer] 01/01/20211951 / / [id number] Hemostatic Surgiflo 8ml W/ Thrombin 2994 - [id number] Implanted:Qty : 1 on 02/13/2024 by Tye Singh MD at [facility] Hemostatic Right: Neck [employer] [id number] 10/01/2024 2994 / / [id number] Dental Implants Procedures Procedure Name Priority Date/Time Associated Diagnosis Comments US CAROTID DOPPLER Routine 08/16/2024 2: 24 PM CDT Bilateral carotid artery stenosis HEMOGLOBIN A1C Routine 02/07/2024 2:15 PM GRANULATOR TENDER LIPID PANEL Routine 11/26/2016 from Last 3 Months or Most Recently Relevant to Health Maintenance Results * US CAROTID DOPPLER (08/16/2024 2:24 PM CDT) Anatomical Region Laterality Modality Neck Ultrasound 08/16/2024 1:11 PM CDT Narrative 08/17/2024 7:02 AM CDT [address] [address] [email or web address] Cerebrovascular Exam Carotid Duplex Patient: Gio Grant Study ID: [id number] Gender: M : 1945 Age: 78 Race: CAU Height 175.3cm Study Date: 08/16/2024 Weight: 84.8kg Access. #: [id number] *Referring Physician:* Tye Singh Gregory *Ordering Physician:* Tye Singh *Grain Commodity Manager:* Elizabeth Oropeza History: Known carotid disease. PMH: Prior study from 05/16/24 is available for comparison. Risk factors: Former tobacco use; date of cessation unknown. Hypertension. Diabetes mellitus. Hyperlipidemia. Coronary artery disease. Study data: [facility] Study status: Routine. Procedure: A vascular [...] cm Prepared and Electronically Authenticated Enoc Padilla [id number] Procedure Note Enoc Padilla MD - 08/17/[address] [facility] [place] [address] [email or web address] Cerebrovascular Exam Carotid Duplex Patient: Gio Grant Study ID: [id number] Gender: M : 1945 Age: 78 Race: MARY JO Height 175.3cm Study Date: 08/16/2024 Weight: 84.8kg Access. #: [id number] *Referring Physician:Tye Rae Gregory *Ordering Physician:Tye Rae *Grain Commodity Manager:* Elizabeth Oropeza History: Known carotid disease. PMH: Prior study from 05/16/24 isavailable for comparison. Risk factors: Former tobacco use; date of cessationunknown. Hypertension. Diabetes mellitus. Hyperlipidemia. Coronary arterydisease. Study data: New node Study status: Routine. [...] cm Prepared and Electronically Authenticated Enoc Padilla [id number] Tye Singh MD ORDERABLES Final Result * (ABNORMAL) HEMOGLOBIN A1C (02/07/2024 2:15 PM GRANULATOR TENDER) HEMOGLOBIN A1C 7.3(H) <5.7 % 02/07/2024 3:09 PM GRANULATOR TENDER [facility] Zmanda [facility] EST. AVG GLUCOSE, A1C 163 mg/dL 02/07/2024 3:09 PM [facility] Zmanda [facility] Blood Venipuncture / Unknown 02/07/2024 2:15 PM GRANULATOR TENDER 02/07/2024 2:47 PM GRANULATOR TENDER Narrative [facility] - 02/07/2024 3:09 PM GRANULATOR TENDER HGB A1C INTERPRETATION NORMAL: <5.7% PRE-DIABETES: 5.7 - 6.4% DIABETES: 6.5% OR GREATER Latonya Acosta [facility] ORDERABLES Vaishnavi l Result [facility] Zmanda [facility] CLIA# [id number] [address] [place] [address] * (ABNORMAL) LIPID PANEL (11/26/2016) Blood Johana Ramírez PA-C CHEMISTRY ORDERABLES Dustin estrella Result - Final [facility] CLIA# [id number] [address] [place] [place] [address], [facility] [address] [place] [address] from Last 3 Months or Most Recently Relevant to Health Maintenance Insurance MEDICARE PART A AND B [facility] Advance Directives For more information, please contact: [phone] * Full Code (Latest Code Status on [...] 6:37 AM 12/03/2016 6:11 PM Care Teams Car Repairman Relationship Specialty Start Date End Date Andres Thompson MD [address] [place] [id number] PCP - General Family Practice 12/01/16
[2024-09-14 08:29] LABS: Cholesterol 135 mg/dL (0-200); HDL Direct 38 mg/dL; Triglycerides 85 mg/dL (<150)
[2024-09-14 08:38] LABS: Basophils Absolute Auto 0.1 K/mm3 (0.0-0.1); Basophils Percent Auto 1.3 % (0.2-1.2); Eosinophils Absolute Auto 0.7 K/mm3 (0-0.3); Eosinophils Percent Auto 8.9 % (0-4.4); Hematocrit 40.2 % (42.0-52.0); Hemoglobin 13.1 g/dL (14.0-18.0); Immature Granulocyte Absolute 0.02 K/mm3 (0.00-0.031); Immature Granulocyte Percent A 0.3 % (0-0.5); Lymphocytes Absolute Auto 1.78 K/mm3 (0.9-3.2); Lymphocytes Percent Auto 23.3 % (18.3-44.2); Mean Corpuscular HGB Conc 32.6 g/dl (32-36); Mean Platelet Volume 10.2 fl (7.4-10.4); Monocytes Absolute Auto 0.7 K/mm3 (0.1-0.6); Monocytes Percent Auto 9.4 % (2.6-8.5); Neutrophils Absolute Auto 4.3 K/mm3 (1.3-6.7); Neutrophils Percent Auto 56.8 % (45.5-73.1); Platelet Count Result 225 k/mm3 (150-375); Red Blood Count 4.37 M/mm3 (4.6-6.20); Red Cell Distribution Width 14.2 % (11.5-14.5); White Blood Count 7.6 K/mm3 (4.5-10.0)
[2024-09-14 08:40] LABS: LDL Cholesterol Direct 69 mg/dL
== END 2024-09-14 07:55 | disposition home or self-care (01) ==
PROVIDERS: PCP Family Medicine; Visit Provider Family Medicine
DX: D64.9 Anemia, unspecified (principal); E78.5 Hyperlipidemia, unspecified; Z13.1 Encounter for screening for diabetes mellitus; R73.09 Other abnormal glucose
CPT/HCPCS: 36415; 80061; 83036; 84443; 85025

== ENCOUNTER 2024-09-20 10:49 | Outpatient (CLI) | payer MEDICARE, BC, SELFPAY ==
--- NOTE | ~2024-09-20 | US_ITS ---
EXAM: Focused ultrasound examination of the soft tissues of the anterior superior neck HISTORY: R22.1 - Localized swelling, mass and lump, neck TECHNIQUE: Sonographic evaluation of the soft tissues of the anterior superior neck were performed as sessing grayscale appearance and color Doppler flow. COMPARISON: None. FINDINGS: Within the area of palpable concern, no abnormal soft tissue is present. Along the lateral portion of the neck, to the right of midline is a reniform shaped focus of decrease d echogenicity, measuring 4 mm in short axis dimension. Within the midline of the anterior neck is a well-circumscribed reniform shaped focus of decreased ec hogenicity measuring 3 mm in short axis dimension. Within the lateral neck to the left midline is a reniform shaped focus of decreased echogenicity [place] uring 4.6 mm in short axis dimension. An additional reniform shaped focus of decreased echogenicity is identified to the left of midline me asuring 3.1 mm in short axis dimension. Sonographic evaluation of the remainder of the soft tissues of the anterior superior neck demonstrate benign fibrofatty and fibromuscular elements without a cystic or solid lesion of concern. IMPRESSION: Multiple nonpathologically enlarged or morphologically suspicious lymph nodes, as detailed above. Within the area of palpable concern, no abnormal soft tissue is present. Reviewed, dictated and finalized at location A.
== END 2024-09-20 10:50 | disposition home or self-care (01) ==
LOC: MICIMG 10:51
PROVIDERS: PCP Family Medicine; Visit Provider Family Medicine
DX: R22.1 Localized swelling, mass and lump, neck (principal)
CPT/HCPCS: 76536

== ENCOUNTER 2025-03-18 12:50 | Outpatient (CLI) | payer MEDICARE, BC, SELFPAY ==
--- NOTE | ~2025-03-18 | XR_ITS ---
XR lumbar spine 6V w bending Indication: M47.816 - Spondylosis without myelopathy or radiculopathy... Comparison: None Findings: Grade 1 retrolisthesis of L2 on L3 and L3 on L4, no fracture. Moderate loss of vertebral height throughout. No subluxation flexion and extension Moderate to severe loss of disc height throughout. Soft tissues unremarkable Impression: No acute abnormality. Reviewed, dictated and finalized at location P. WORKER Impression: No acute abnormality.
== END 2025-03-18 12:51 | disposition home or self-care (01) ==
PROVIDERS: PCP Family Medicine; Visit Provider Nurse Practitioner Family
DX: M47.816 Spondylosis without myelopathy or radiculopathy, lumbar region (principal); M51.369 Other intervertebral disc degeneration, lumbar region without mention of lumbar back pain or lower extremity pain
CPT/HCPCS: 72114